=== PATIENT | male | born 1990 | race African-American/Black ===

== ENCOUNTER 2017-02-15 14:50 | Emergency (ER) | payer SELFPAY ==
[~2017-02-15] VITALS: Ht 180.3 cm; Wt 61.2 kg
[2017-02-15 15:08] VITALS: BP 150/75
[2017-02-15] MEDS ORDERED: AZITHROMYCIN 250 MG TABLET. PO ONE (15:15)
[2017-02-15] MEDS ORDERED: cefTRIAXone IM 250 MG VIAL IM ONE (15:15)
[2017-02-15] MEDS ORDERED: metroNIDAZOLE 500 MG TABLET PO ONE (15:15)
--- NOTE | 2017-02-15 15:33 | PHYS DOC ---
Past Medical History Past Medical History: No Pertinent History Past Surgical History: No Surgical History Alcohol Use: None Drug Use: None Adult General Chief Complaint Chief Complaint: SEXUALLY TRANSMITTED DISEASE HPI HPI Patient is a 26 year old male who presents with dysuria for 2 days. Patient states he is concerned about STDs and would like to be tested and treated. Review of Systems Review of Systems Constitutional: Denies fever or chills [] Eyes: Denies change in visual acuity, redness, or eye pain [] : Dysuria for 2 days Musculoskeletal: Denies back pain or joint pain [] Integument: Denies rash or skin lesions [] Neurologic: Denies headache, focal weakness or sensory changes [] Endocrine: Denies polyuria or polydipsia [] Current Medications Current Medications Current Medications Medications (Trade) Dose Ordered Sig/Yung Start Time Stop Time Status Last Admin Dose Admin Azithromycin (Zithromax) 1,000 mg 1X ONCE 02/15/17 15:15 02/15/17 15:20 DC 02/15/17 15:35 1,000 MG Ceftriaxone Sodium (Rocephin Im) 250 mg 1X ONCE 02/15/17 15:15 02/15/17 15:20 DC 02/15/17 15:37 250 MG Metronidazole (Flagyl) 2,000 mg 1X ONCE 02/15/17 15:15 02/15/17 15:20 DC 02/15/17 15:35 2,000 MG Allergies Allergies Allergies Coded Allergies Type Severity Reaction Last Updated Verified No Known Drug Allergies 02/15/17 No Physical Exam Physical Exam Constitutional: Well developed, well nourished, no acute distress, non-toxic appearance. [] HENT: Normocephalic, atraumatic, bilateral external ears normal, oropharynx moist, no oral exudates, nose normal. [] Abdomen: Bowel sounds normal, soft, no tenderness, no masses, no pulsatile masses. [] Skin: Warm, dry, no erythema, no rash. [] Back: No tenderness, no CVA tenderness. [] Extremities: No tenderness, no cyanosis, no clubbing, ROM intact, no edema. [] Neurologic: Alert and oriented X 3, normal motor function, normal sensory function, no focal deficits noted. [] Psychologic: Affect normal, judgement normal, mood normal. [] Current Patient Data Vital Signs Vital Signs Date Time Temp Pulse Resp B/P (MAP) Pulse Ox O2 Delivery O2 Flow Rate FiO2 02/15/17 15:08 99.0 93 16 98 Room Air 99.0 Lab Values Laboratory Tests Test 02/15/17 15:08 Urine Collection Type Void Urine Color Yellow Urine Clarity Turbid Urine pH 5.5 Urine Specific [place] 1.025 Urine Protein 30 mg/dL (NEG-TRACE) Urine Glucose (UA) Negative mg/dL (NEG) Urine Ketones (Stick) Negative mg/dL (NEG) Urine Blood Small (NEG) Urine Nitrite Negative (NEG) Urine Bilirubin Negative (NEG) Urine Urobilinogen Dipstick 0.2 mg/dL (0.2 mg/dL) Urine Leukocyte Esterase Large (NEG) Urine RBC Occ /HPF (0-2) Urine WBC >40 /HPF (0-4) Urine Bacteria Mod /HPF (0-FEW) Urine Mucus Mod /LPF EKG EKG [] Radiology/Procedures Radiology/Procedures [] Course & Med Decision Making Course & Med Decision Making Pertinent Labs and Imaging studies reviewed. (See chart for details) Patient is in the ED with concern for STDs. He was treated prophylaxis with Flagyl azithromycin and Rocephin. He was instructed to contact all his sex partners, let them know he was treated for STDs and ask them to seek treatment too. He is to follow-up with the health department for further STD concerns. Dragon Disclaimer Dragon Disclaimer This electronic medical record was generated, in whole or in part, using a voice recognition dictation system. Departure Departure Impression: Primary Impression: Concern about STD in male without diagnosis Disposition: HOME, SELF-CARE Condition: STABLE Referrals: NO PCP (PCP) Follow up with the health department for further STD concerns Patient Instructions: Sexually Transmitted Disease Additional Instructions: You have treated prophylaxis for STDs in the emergency room. You cannot have any sex for the next 1 week. Contact all your sex partners, let them know you were treated for STDs and ask them to seek treatment too. Follow-up with the health department for further STD concerns. KENYA CHANDLER APRN Feb 15, 2017 15:33 MIGUEL ENCINAS MD Feb 16, 2017 02:43
[2017-02-15 15:35] LABS: BILIRUBIN,URINE NEGATIVE (NEG); GLUCOSE,URINE NEGATIVE (NEG); NITRITE,URINE NEGATIVE (NEG); PH,URINE 5.5; PROTEIN,URINE 30 mg/dL (NEG-TRACE); UROBILINOGEN,URINE 0.2 mg/dL (0.2 mg/dL)
[2017-02-15 15:56] LABS: BACTERIA,URINE MOD /HPF (0-FEW); RBC,URINE OCC /HPF (0-2); WBC,URINE >40 /HPF (0-4)
== END 2017-02-15 15:47 | disposition home or self-care (01) ==
LOC: ER 14:50
DX: Z11.3 Encounter for screening for infections with a predominantly sexual mode of transmission (principal); R30.0 Dysuria
CPT/HCPCS: 81001; 87491; 87591; 96372; 99284; J0696; Q0144

== ENCOUNTER 2017-02-19 15:11 | Emergency (ER) | payer SELFPAY ==
[~2017-02-19] VITALS: Ht 180.3 cm; Wt 79.4 kg
[2017-02-19 15:28] VITALS: BP 126/59
[2017-02-19] MEDS ORDERED: cefTRIAXone IM 250 MG VIAL IM ONE (16:00)
[2017-02-19] MEDS ORDERED: AZITHROMYCIN 250 MG TABLET. PO ONE (16:00)
[2017-02-19] MEDS ORDERED: metroNIDAZOLE 500 MG TABLET PO ONE (16:00)
[2017-02-19 16:33] LABS: BILIRUBIN,URINE NEGATIVE (NEG); GLUCOSE,URINE NEGATIVE (NEG); NITRITE,URINE NEGATIVE (NEG); PH,URINE 5.5; PROTEIN,URINE NEGATIVE (NEG-TRACE); UROBILINOGEN,URINE 0.2 mg/dL (0.2 mg/dL)
[2017-02-19] MEDS ORDERED: CIPR500T94 PO (16:43)
--- NOTE | 2017-02-19 16:43 | PHYS DOC ---
Past Medical History Past Medical History: No Pertinent History Past Surgical History: No Surgical History Alcohol Use: None Drug Use: None Adult General Chief Complaint Chief Complaint: SEXUALLY TRANSMITTED DISEASE HPI HPI Patient is a 26 year old male presents to the emergency department stating he has yellow penile drainage coming from his penis for the last 2 days. He states he is sexually active with 2 partners. He denies fever, chills, nausea, vomiting , or abdominal pain. Review of Systems Review of Systems Constitutional: Denies fever or chills [] Eyes: Denies change in visual acuity, redness, or eye pain [] HENT: Denies nasal congestion or sore throat [] Respiratory: Denies cough or shortness of breath [] Cardiovascular: No additional information not addressed in HPI [] GI: Denies abdominal pain, nausea, vomiting, bloody stools or diarrhea [] : Denies dysuria or hematuria. C/o penile drainage Musculoskeletal: Denies back pain or joint pain [] Integument: Denies rash or skin lesions [] Neurologic: Denies headache, focal weakness or sensory changes [] Endocrine: Denies polyuria or polydipsia [] Current Medications Current Medications Current Medications Medications (Trade) Dose Ordered Sig/Yung Start Time Stop Time Status Last Admin Dose Admin Azithromycin (Zithromax) 1,000 mg 1X ONCE 02/19/17 16:00 02/19/17 16:01 DC 02/19/17 16:24 1,000 MG Ceftriaxone Sodium (Rocephin Im) 250 mg 1X ONCE 02/19/17 16:00 02/19/17 16:01 DC 02/19/17 16:24 250 MG Metronidazole (Flagyl) 2,000 mg 1X ONCE 02/19/17 16:00 02/19/17 16:01 DC 02/19/17 16:23 2,000 MG Allergies Allergies Allergies Coded Allergies Type Severity Reaction Last Updated Verified No Known Drug Allergies 02/15/17 No Physical Exam Physical Exam Constitutional: Well developed, well nourished, no acute distress, non-toxic appearance. [] HENT: Normocephalic, atraumatic, bilateral external ears normal, oropharynx moist, no oral exudates, nose normal. [] Eyes: PERRLA, EOMI, conjunctiva normal, no discharge. [] Neck: Normal range of motion, no tenderness, supple, no stridor. [] Cardiovascular:Heart rate regular rhythm, no murmur [] Lungs & Thorax: Bilateral breath sounds clear to auscultation [] Skin: Warm, dry, no erythema, no rash. [] Back: No tenderness Extremities: No tenderness, no cyanosis, no clubbing, ROM intact, no edema. [] Neurologic: Alert and oriented X 3, normal motor function, normal sensory function, no focal deficits noted. [] Psychologic: Affect normal, judgement normal, mood normal. [] Current Patient Data Vital Signs Vital Signs Date Time Temp Pulse Resp B/P (MAP) Pulse Ox O2 Delivery O2 Flow Rate FiO2 02/19/17 15:28 98.4 96 18 98 Room Air 98.4 Lab Values Laboratory Tests Test 02/19/17 15:30 Urine Collection Type Unknown Urine Color Yellow Urine Clarity Clear Urine pH 5.5 Urine Specific [place] 1.025 Urine Protein Negative mg/dL (NEG-TRACE) Urine Glucose (UA) Negative mg/dL (NEG) Urine Ketones (Stick) Negative mg/dL (NEG) Urine Blood Negative (NEG) Urine Nitrite Negative (NEG) Urine Bilirubin Negative (NEG) Urine Urobilinogen Dipstick 0.2 mg/dL (0.2 mg/dL) Urine Leukocyte Esterase Small (NEG) Urine RBC 0 /HPF (0-2) Urine WBC 5-10 /HPF (0-4) Urine Bacteria 0 /HPF (0-FEW) Urine Mucus Marked /LPF EKG EKG [] Radiology/Procedures Radiology/Procedures [] Course & Med Decision Making Course & Med Decision Making Pertinent Labs and Imaging studies reviewed. (See chart for details) Patient was provided with Rocephin, flagyl and zithromax here in the emergency department. Patient was instructed to avoid sexual intercourse for the next 2 weeks. He was instructed results for STD will be noted in 3-4 days. He will be notified of positive results. Patient was provided with signs and symptoms to return to the emergency department. Patient agrees with discharge instructions, treatment regimen and followup recommendations. He was instructed to drink plenty of fluids such as water and cranberry juice. Avoid cranberry juice cocktail, carbonated beverages, citrus fruits and alcohol as these are considered irritants to the bladder. [] Dragon Disclaimer Dragon Disclaimer This electronic medical record was generated, in whole or in part, using a voice recognition dictation system. Departure Departure Impression: Primary Impression: STD (male) Additional Impression: UTI (urinary tract infection) Disposition: 01 HOME, SELF-CARE Condition: STABLE Referrals: NO PCP (PCP) Patient Instructions: Sexually Transmitted Disease, [id number], Urinary Tract Infection, [id number] Additional Instructions: Activity as tolerated Drink plenty of fluids such as water and cranberry juice Avoid cranberry juice cocktail , carbonated beverages, citrus fruits, caffeine and alcohol as these are irritants to the bladder Medication as prescribed Avoid sexual intercourse for the next two weeks Do NOT have sex with your partner for 2 weeks after they have been treated Followup with primary care provider in 3-5 days Return to emergency department as needed for signs and symptoms that become worse. Scripts Ciprofloxacin Hcl (CIPRO) 500 Mg Tablet 1 TAB PO BID, #14 TAB Prov: MARIAMA LIN APRN 02/19/17 Problem Qualifiers MARIAMA LIN APRN Feb 19, 2017 16:43
[2017-02-19 16:45] LABS: BACTERIA,URINE 0 /HPF (0-FEW); RBC,URINE 0 /HPF (0-2)
--- NOTE | 2017-02-20 16:41 | VNOTE ---
CALL BACK NOTE CALL BACK Microbiology 02/19/17 Urine Culture - Preliminary, Resulted 02/19/17 Urine Culture Result 1 (TOÑA) - Preliminary, Resulted Patient's culture is positive for gonorrhea, we did give him results yesterday when he was in the ED and education KENYA CHANDLER APRN Feb 20, 2017 16:41
== END 2017-02-19 16:50 | disposition home or self-care (01) ==
LOC: ER 15:11
DX: A64 Unspecified sexually transmitted disease (principal); N39.0 Urinary tract infection, site not specified
CPT/HCPCS: 81001; 87086; 87491; 87591; 96372; 99284; J0696; Q0144

== ENCOUNTER 2019-04-29 09:13 | Emergency (ER) | payer SELFPAY ==
[~2019-04-29] VITALS: Ht 180.3 cm; Wt 74.8 kg
[~2019-04-29 09:13] MED LIST: CIPR500T94 PO
[2019-04-29 09:23] VITALS: BP 116/71
--- NOTE | 2019-04-29 09:46 | PHYS DOC ---
Past Medical History Past Medical History: No Pertinent History Past Surgical History: No Surgical History Alcohol Use: None Drug Use: None Adult General Chief Complaint Chief Complaint: PAIN ON URINATION HPI HPI Patient is a 29 year old male who presents to the ED today complaining of dysuria for 3 days. Patient is concerned about STDs and would like to be tested and treated. He states has been "bouncing off two partners". Review of Systems Review of Systems Constitutional: Denies fever or chills [] GI: Denies abdominal pain, nausea, vomiting, bloody stools or diarrhea [] : Reports dysuria and concern for STDs, denies hematuria [] Musculoskeletal: Denies back pain or joint pain [] Integument: Denies rash or skin lesions [] Neurologic: Denies headache, focal weakness or sensory changes [] All other systems were reviewed and found to be within normal limits, except as documented in this note. Current Medications Current Medications Current Medications Medications (Trade) Dose Ordered Sig/Yung Start Time Stop Time Status Last Admin Dose Admin Azithromycin (Zithromax) 1,000 mg 1X ONCE 04/29/19 10:00 04/29/19 10:01 Ceftriaxone Sodium (Rocephin Im) 250 mg 1X ONCE 04/29/19 10:00 04/29/19 10:01 Metronidazole (Flagyl) 2,000 mg 1X ONCE 04/29/19 10:00 04/29/19 10:01 Allergies Allergies Allergies Coded Allergies Type Severity Reaction Last Updated Verified No Known Drug Allergies 02/15/17 No Physical Exam Physical Exam Constitutional: Well developed, well nourished, no acute distress, non-toxic appearance. [] Skin: Warm, dry, no erythema, no rash. [] Back: No tenderness, no CVA tenderness. [] Extremities: No tenderness, no cyanosis, no clubbing, ROM intact, no edema. [] Neurologic: Alert and oriented X 3, normal motor function, normal sensory function, no focal deficits noted. [] Psychologic: Affect normal, judgement normal, mood normal. [] Current Patient Data Vital Signs Vital Signs Date Time Temp Pulse Resp B/P (MAP) Pulse Ox O2 Delivery O2 Flow Rate FiO2 04/29/19 09:23 97.9 95 16 116/71 (86) 96 Room Air 97.9 EKG EKG [] Radiology/Procedures Radiology/Procedures [] Course & Med Decision Making Course & Med Decision Making Pertinent Labs and Imaging studies reviewed. (See chart for details) This is a 29-year-old male patient who presents to the ED today with concern for STDs. Patient has 2 partners. Patient was treated in the ED for STDs. Education provided. F/u with health department for STD concerns. Dragon Disclaimer Dragon Disclaimer This electronic medical record was generated, in whole or in part, using a voice recognition dictation system. Departure Departure Impression: Primary Impression: Concern about STD in male without diagnosis Disposition: 01 HOME, SELF-CARE Condition: STABLE Referrals: NO PCP (PCP) Follow-up with the health department for further STD concerns Patient Instructions: Sexually Transmitted Disease Additional Instructions: You were treated in the emergency room for sexually transmitted disease. Do not have any sexual intercourse for 2 weeks. Use protection, contact all your sex partners, let them know you were treated for STDs and ask them to seek treatment too. KENYA CHANDLER APRN Apr 29, 2019 09:46
[2019-04-29 09:52] LABS: BILIRUBIN,URINE NEGATIVE (NEG); CLARITY,URINE CLEAR; COLOR,URINE YELLOW; NITRITE,URINE NEGATIVE (NEG); PH,URINE 5.5; PROTEIN,URINE NEGATIVE (NEG-TRACE); UROBILINOGEN,URINE 0.2 mg/dL (0.2 mg/dL)
[2019-04-29 09:56] LABS: BARBITURATES NEG (NEG); BENZODIAZEPINES NEG (NEG); CANNABINOIDS NEG (NEG); COCAINE NEG (NEG); METHADONE NEG (NEG); OPIATES NEG (NEG); PHENCYCLIDINE NEG (NEG)
[2019-04-29 09:59] LABS: AMPHETAMINE/METHAMPHETAMINE NEG (NEG)
[2019-04-29] MEDS ORDERED: metroNIDAZOLE 500 MG TABLET PO ONE (10:00)
[2019-04-29] MEDS ORDERED: AZITHROMYCIN 250 MG TABLET. PO ONE (10:00)
[2019-04-29] MEDS ORDERED: cefTRIAXone IM 250 MG VIAL IM ONE (10:00)
[2019-04-29 10:11] LABS: BACTERIA,URINE 0 /HPF (0-FEW); RBC,URINE 0 /HPF (0-2)
== END 2019-04-29 10:16 | disposition home or self-care (01) ==
LOC: ER 09:13
DX: Z20.2 Contact with and (suspected) exposure to infections with a predominantly sexual mode of transmission (principal)
CPT/HCPCS: 80307; 81001; 87491; 87591; 96372; 99284; J0696; Q0144

== ENCOUNTER 2019-05-20 05:08 | Emergency (ER) | payer SELFPAY ==
[~2019-05-20] VITALS: Ht 182.9 cm; Wt 74.8 kg
[2019-05-20 05:10] VITALS: BP 121/75
[2019-05-20] MEDS ORDERED: DICL50TA4 PO (06:09)
--- NOTE | 2019-05-20 06:10 | PHYS DOC ---
Past Medical History Past Medical History: No Pertinent History Past Surgical History: No Surgical History Alcohol Use: None Drug Use: None Adult General Chief Complaint Chief Complaint: SHANNON HPI HPI 29 yo male presents to the ER with complaints of right shoulder pain and right chest wall pain. Patient states this started 2 days ago with progression. Movements and deep breathe make pain worse. Patient denies nausea, vomiting, diarrhea, abdominal pain, fever, or cough. Given his increased pain he presented to the ER for further evaluation. Review of Systems Review of Systems Constitutional: Denies fever or chills [] Respiratory: Denies cough or shortness of breath [] Cardiovascular: No additional information not addressed in HPI [] GI: Denies abdominal pain, nausea, vomiting, bloody stools or diarrhea [] Musculoskeletal: Denies back pain or joint pain [] Integument: Denies rash or skin lesions [] Neurologic: Denies headache, All other systems were reviewed and found to be within normal limits, except as documented in this note. Current Medications Current Medications Current Medications Medications (Trade) Dose Ordered Sig/Yung Start Time Stop Time Status Last Admin Dose Admin Ketorolac Tromethamine (Toradol Im) 60 mg 1X ONCE 05/20/19 06:30 05/20/19 06:29 DC 05/20/19 06:19 60 MG Allergies Allergies Allergies Coded Allergies Type Severity Reaction Last Updated Verified No Known Drug Allergies 02/15/17 No Physical Exam Physical Exam Constitutional: Well developed, well nourished non-toxic appearance. [] HENT: Normocephalic, atraumatic, bilateral external ears normal, oropharynx moist, no oral exudates, nose normal. [] Eyes: PERRLA, EOMI, conjunctiva normal, no discharge. [] Cardiovascular:Heart rate regular rhythm, no murmur [] Lungs & Thorax: Bilateral breath sounds clear to auscultation [] Abdomen: Bowel sounds normal, soft, no tenderness, no masses, no pulsatile masses. [] Skin: Warm, dry, no erythema, no rash. [] Extremities: No tenderness, no edema. [] Neurologic: Alert and oriented X 3, no focal deficits noted. [] Psychologic: Affect normal, judgement normal, mood normal. [] Current Patient Data Vital Signs Vital Signs Date Time Temp Pulse Resp B/P (MAP) Pulse Ox O2 Delivery O2 Flow Rate FiO2 05/20/19 05:10 98.0 81 20 121/75 (90) 98 Room Air 98.0 EKG EKG [] Radiology/Procedures Radiology/Procedures [] Course & Med Decision Making Course & Med Decision Making Pertinent Labs and Imaging studies reviewed. (See chart for details) []29 yo male presents to the ER with complaints of right shoulder pain and right chest wall pain. Patient states this started 2 days ago with progression. Movements and deep breathe make pain worse. Patient denies nausea, vomiting, diarrhea, abdominal pain, fever, or cough. Given his increased pain he presented to the ER for further evaluation. Imaging reviewed without acute process. CXR without evidence of consolidation, effusion, pneumothorax. Shoulder imaging withoug acute process. Toradol 60mg IM provided x 1. Patient unhappy and feels he needs labs and CT however declined given unremarkable findings on exam. Plan for dc and follow up with PCP as needed. Discussed dc with patient. Dragon Disclaimer Dragon Disclaimer This electronic medical record was generated, in whole or in part, using a voice recognition dictation system. Departure Departure Impression: Primary Impression: Right shoulder pain Additional Impression: Right-sided chest wall pain Disposition: HOME, SELF-CARE Condition: STABLE Referrals: NO PCP (PCP) Patient Instructions: Chest Wall Pain, [id number], Shoulder Pain, Easy-to-Re ad Additional Instructions: Take medications as prescribed Tylenol/Motrin as needed for pain Right shoulder xray/Chest xray without fracture, infection Scripts Diclofenac Sodium (DICLOFENAC SODIUM) 50 Mg Tablet.dr 1 TAB PO BID for 7 Days, #14 TAB 1 Refill Prov: EVAN RIVERA MD 05/20/19 Problem Qualifiers Primary Impression: Right shoulder pain Chronicity: acute Qualified Codes: M25.511 - Pain in right shoulder EVAN RIVERA MD May 20, 2019 06:10
--- NOTE | 2019-05-20 06:13 | RAD ---
AP chest x-ray HISTORY: Chest pain shortness of breath. FINDINGS: Heart size normal. Mediastinal silhouette is normal. No pneumothorax, pulmonary opacities or pleural effusions. Bones are unremarkable. IMPRESSION: No acute process in the chest. Right shoulder x-rays 3 views HISTORY: Pain. FINDINGS: No fracture, dislocation or arthritic change. Soft tissues unremarkable. IMPRESSION: Negative exam. Electronically signed by: Live Arias MD (05/20/2019 6:10 AM) [id number]
--- NOTE | 2019-05-20 06:13 | RAD ---
AP chest x-ray HISTORY: Chest pain shortness of breath. FINDINGS: Heart size normal. Mediastinal silhouette is normal. No pneumothorax, pulmonary opacities or pleural effusions. Bones are unremarkable. IMPRESSION: No acute process in the chest. Right shoulder x-rays 3 views HISTORY: Pain. FINDINGS: No fracture, dislocation or arthritic change. Soft tissues unremarkable. IMPRESSION: Negative exam. Electronically signed by: Live Arias MD (05/20/2019 6:10 AM) [id number]
[2019-05-20] MEDS ORDERED: KETOROLAC 60 MG/2 ML VIAL. IM ONE (06:30)
== END 2019-05-20 06:28 | disposition home or self-care (01) ==
LOC: ER 05:08
DX: M25.511 Pain in right shoulder (principal); R07.89 Other chest pain
CPT/HCPCS: 71045; 73030; 96372; 99284; J1885